=== PATIENT | female | born 1975 | race Caucasian/White ===

== ENCOUNTER 2022-10-17 10:43 | Emergency (ER) | payer BC ==
[~2022-10-17] VITALS: Ht 167.6 cm; Wt 68.2 kg
[2022-10-17] MEDS ORDERED: diazepam 5mg tablet PO ONE (11:05)
[2022-10-17] MEDS ORDERED: OLANZapine **IM** 10 mg inj. IM ONE (11:20)
--- NOTE | 2022-10-17 11:28 | NUR ---
Pt refusing her PO valium and attempted to leave. Provider aware and to order IM medication
[2022-10-17 11:29] LABS: BASOPHILS # (AUTO) 0.1 X10'3 (0-0.2); BASOPHILS % (AUTO) 0.5 % (0-1); EOSINOPHILS % (AUTO) 0.1 % (0-6); HEMOGLOBIN 15.2 g/dl (12.0-16.0); LYMPHOCYTES # (AUTO) 1.3 X10'3 (1.1-4.8); LYMPHOCYTES % (AUTO) 9.6 % (21-51); MEAN CORPUSCULAR HEMOGLOBIN 29.3 PG (27.0-31.0); MEAN CORPUSCULAR VOLUME 88.8 FL (78-98); MEAN PLATELET VOLUME 7.9 FL (7.4-10.4); MONOCYTES # (AUTO) 0.6 X10'3 (0-0.9); MONOCYTES % (AUTO) 4.4 % (2-12); NEUTROPHILS # (AUTO) 11.7 X10'3 (1.8-7.7); NEUTROPHILS % (AUTO) 85.4 % (42-75); PLATELET COUNT 334 X10'3 (140-440); RED BLOOD COUNT 5.18 X10'6 (4.20-5.60); RED CELL DISTRIBUTION WIDTH 13.1 % (11.5-14.5); WHITE BLOOD COUNT 13.7 X10'3 (4.5-11.0)
[2022-10-17 11:38] LABS: ALANINE AMINOTRANSFERASE 20 U/L (12-78); ALBUMIN 4.3 G/DL (3.4-5.0); ALBUMIN/GLOBULIN RATIO 1.3 (1.1-1.5); ALKALINE PHOSPHATASE 74 IU/L (46-116); ANION GAP 10 (8-16); ASPARTATE AMINO TRANSFERASE 20 U/L (10-37); BILIRUBIN,TOTAL 0.5 MG/DL (0.1-1.0); CALCIUM 9.1 MG/DL (8.5-10.1); CHLORIDE 102 MMOL/L (99-107); CREATININE 0.69 MG/DL (0.40-0.90); GLUCOSE 120 MG/DL (70-104); POTASSIUM 3.3 MMOL/L (3.5-5.1); SODIUM 139 MMOL/L (135-145); TOTAL CARBON DIOXIDE 27.4 MMOL/L (24-32); TOTAL PROTEIN 7.5 G/DL (6.4-8.2); eGFR 90 ML/MIN
[2022-10-17 11:47] LABS: ETHANOL < 0.010 GM/DL (0.0-0.010)
[2022-10-17 11:55] LABS: BLOOD UREA NITROGEN 10 MG/DL (7-18); BUN/CREATININE RATIO 14.5 (6.6-38.0)
--- NOTE | 2022-10-17 12:32 | NUR ---
Patient brought over from Main ED at 1220. Patient sat on the floor when she got out of the wheelchair. Patient appears out of it. RN looked at eMAR and noted patient rec'd 10 mg I.M. of Zyprexa. Per TRAM Machado, patient was getting very anxious/manic and was attempting to leave. Patient did not appear to have capacity and YOUNG Clements ordered the I.M. injection. Continue to monitor.
[2022-10-17] MEDS ORDERED: NAPR220T67 PO (14:00)
[2022-10-17] MEDS ORDERED: ACET-890 PO (14:01)
--- NOTE | 2022-10-17 14:09 | NUR ---
[facility]y called for pt insurance and job status. Pt mother at bedside to help with questions.
[2022-10-17 14:11] LABS: URINE HCG NEGATIVE (NEG)
[2022-10-17 14:21] LABS: URINE AMPHETAMINE SCREEN NEGATIVE (Neg); URINE BARBITUATE SCREEN NEGATIVE (Neg); URINE BENZODIAZEPINES SCREEN NEGATIVE (Neg); URINE CANNABINOID SCREEN NEGATIVE (Neg); URINE COCAINE SCREEN NEGATIVE (Neg); URINE METHADONE SCREEN NEGATIVE (Neg); URINE OPIATE SCREEN NEGATIVE (Neg); URINE PHENCYCLIDINE SCREEN NEGATIVE (Neg)
[2022-10-17 14:42] LABS: CLARITY,URINE SLIGHTLY CLOUDY (Clear); COLOR,URINE YELLOW (Yellow); GLUCOSE, URINE NEGATIVE (Neg); KETONES,URINE 15 mg/dl (Neg); LEUKOCYTE ESTERASE ,URINE NEGATIVE (Neg); NITRITES, URINE NEGATIVE (Neg); OCCULT BLOOD,URINE NEGATIVE (Neg); PROTEIN,URINE NEGATIVE (Neg); UROBILINOGEN,URINE 0.2 E.U/dL (0.2-1.0)
[2022-10-17 14:43] LABS: UA COLLECTION TYPE STRAIGHT CATH
[2022-10-17 14:58] LABS: MUCUS STRANDS MODERATE /LPF (Neg); SQUAMOUS EPITHELIAL CELL,UR MANY /LPF (FEW)
[2022-10-17 15:02] LABS: BACTERIA,URINE FEW /HPF (Neg); RBC,URINE 0-2 /HPF (0-2); TRANSITIONAL EPI CELLS,URINE FEW /HPF; WBC,URINE 0-4 /HPF (0-4)
--- NOTE | 2022-10-17 15:17 | NUR ---
FAXED PACKET TO [facility].
--- NOTE | 2022-10-17 15:43 | NUR ---
Patient sleeping supine. No distress observed. Continue to monitor.
--- NOTE | 2022-10-17 16:35 | NUR ---
RN sitting with mother of patient and explaining the process and getting information on the patient. Mother denies patient has a psychiatric diagnosis. RN explains to mother that her other daughter gave RN HX of diagnosis of Bipolar d/o diagnosed 6-8 years ago. RN asked mother about schizophrenia because there was a mention in the doctor's note about schizophrenia. Mother states she doesn't know where this came from. Patient is sound asleep due to not sleeping for 2-3 days. Patient will probably be asleep until tomorrow due to pt's lack of sleep and getting the Zyprexa injection. History will need to be taken from the patient. RN spoke with [facility] who stated Nadya or Jan would be here tomorrow for the evaluation. Mother is aware that the eval will happen tomorrow. Mother had no idea that bringing her daughter here would result in a hold. [facility] brought the patient here and they told the patient and mom that she would see a psychiatrist here for medication. RN explained that the only way in [facility] for a psychiatrist to see a new patient is the patient would have to be In-patient. The patient would have to be on a 5150 hold. RN gave the mother a brochure to [facility] which is a voluntary unit.
[2022-10-18 05:53] VITALS: BP 114/67
--- NOTE | 2022-10-18 06:51 | NUR ---
Received Pt in bed sleeping w/o distress at this time.
--- NOTE | 2022-10-18 08:00 | NUR ---
Pt's mother is at bedside at this time.
[2022-10-18] MEDS ORDERED: acetaminophen 325mg tablet PO ONE (09:25)
[2022-10-18] MEDS ORDERED: calcium carbonate 500mg chew tablet PO SCH (09:35)
== END 2022-10-18 11:23 | disposition home or self-care (01) ==
LOC: ER 10:43
DX: R45.851 Suicidal ideations (principal); Z20.822 Contact with and (suspected) exposure to COVID-19; F20.9 Schizophrenia, unspecified; F32.A Depression, unspecified; Z88.1 Allergy status to other antibiotic agents
CPT/HCPCS: 36415; 80053; 80305; 80320; 81001; 81025; 84443; 85025; 87811; 96372; 99285; J3490; A4353

== ENCOUNTER 2023-04-26 16:40 | Inpatient (IN) | payer BC ==
[~2023-04-26] VITALS: Ht 167.6 cm; Wt 79.7 kg
[~2023-04-26 16:40] MED LIST: ACET-890 PO; NAPR220T67 PO
[2023-04-26] MEDS ORDERED: acetaminophen 325mg tablet PO PRN (21:40)
[2023-04-26] MEDS ORDERED: loperamide 2mg capsule PO PRN (21:40)
[2023-04-26 21:47] VITALS: BP 112/70; PULSE 67; RESP 16; TEMP 97.2; O2SAT 94
[2023-04-26] MEDS ORDERED: OMEP40CA21 PO (22:38)
[2023-04-26] MEDS ORDERED: SERT25TA PO (22:38)
[2023-04-26] MEDS ORDERED: HYDR-3686 PO (22:38)
[2023-04-26] MEDS ORDERED: ESCI20TA17 PO (22:38)
[2023-04-26] MEDS ORDERED: RISP90SU SQ (22:38)
[2023-04-26] MEDS ORDERED: RISP1TAB98 PO (22:38)
[2023-04-26] MEDS ORDERED: traZODone 50mg tablet PO ONE (22:44)
[2023-04-26] MEDS ORDERED: NO HOME MEDS (22:52)
[2023-04-26 23:12] VITALS: RESP 16; O2SAT 94
--- NOTE | 2023-04-27 03:26 | NUR ---
Admit Note: Reva Patient is a direct admit from [facility]. Pt is on 5150 for DTS/GD. Pt cut her left wrist because she was having CAH to harm herself. Pt hadnt been eating or sleeping well. No sutures needed for laceration/abrasion. Wound was measured and picture taken then redressed with telfa and gauze. Pt has a stressful job working for the [employer] in the [employer] service remotely. Pts mother took her in to be evaluated. Pt has a history of self harm and does not want to . Denies SI on admission. Pt was cooperative with skin check. Pt stated she suffers from insomnia. Trazodone 100mg given.
[2023-04-27 07:00] VITALS: RESP 16; O2SAT 98
[2023-04-27 08:00] VITALS: BP 110/53; PULSE 70; RESP 16; TEMP 97.1; O2SAT 98
[2023-04-27] MEDS ORDERED: sertraline 50mg tablet PO ONE (15:30)
[2023-04-27] MEDS ORDERED: LORazepam 0.5 MG tablet PO PRN (15:35)
--- NOTE | 2023-04-27 17:23 | NUR ---
Nursing Progress Note: Problem : Patient is a direct admit from [facility]. Pt is on 5150 for DTS/GD. Pt cut her left wrist because she was having CAH to harm herself. Pt hadnt been eating or sleeping well. No sutures needed for laceration/abrasion. Wound was measured and picture taken then redressed with telfa and gauze. 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 Pts mother took her in to be evaluated. Pt has a history of self harm and does not want to . Denies SI on admission. Interventions : Introduced self and established rapport, maintained a safe and supportive environment, ensured contract for safety, provided clear and simple instructions, provided active listening and positive encouragement, encouraged pt. to perform ADLs, and maintained Q 15min safety checks. Response : Received pt. sleeping in bed at the beginning of the shift, she awoke and paced the hallway for a short time, before retreating back to bed. Pt. refused her ordered admission labs becoming slightly agitated. This song writer introduced herself and invited pt. to come to breakfast when it arrived. Pt. stared intently at this song writer for a long time before finally responding, "I'll come down to eat." She finally made it to breakfast after a long delay, where she sat blankly staring at her food. Pt. was able to eat a small amount with encouragement. She appears to require encouragement in order to perform her ADLs. After breakfast, pt. was observed to be wandering aimlessly in the hallway and appeared almost lost. This song writer approached her and provided active listening and positive encouragement. 1:1 was completed, and pt. responded minimally to direct questions with a very delayed response. When questioned regarding S/I pt. stated, "I don't know." She is able to contract for safety while on the unit. Pt. then went on to state remorsefully, "I just feel like I hurt my family." She denies any A/V/BURNHAM and no delusional statements were made. Pt. remained isolated from others throughout much of the shift, napping at intervals. She continues to require encouragement to eat, and ate lunch in her room. Plan : Pt. requires interruption of current crisis, medication adjustments, and a safe and supportive environment.
[2023-04-27 19:40] VITALS: RESP 14; O2SAT 97
[2023-04-27] MEDS: risperiDONE 0.5mg tablet PO SCH (20:05)
[2023-04-27] MEDS: traZODone 50mg tablet PO SCH ×2 (20:06→23:11)
[2023-04-27 20:48] VITALS: BP 134/82; PULSE 80; RESP 14; TEMP 98.9; O2SAT 97
[2023-04-27] MEDS ORDERED: diphenhydrAMINE 50 mg/ml inj ONE (23:24)
[2023-04-27] MEDS: OLANZapine **IM** 10 mg inj. IM ONE ×2 (23:24→23:43)
[2023-04-27] MEDS ORDERED: LORazepam 2 mg/ml vial ONE (23:25)
--- NOTE | 2023-04-27 23:40 | NUR ---
SECLUSION/MECHANICAL RESTRAINTS Early this evening Pt was was up walking and started running toward the exit door, Pt was redirected and walked back to room. PRN Ativan given. This radio script writer had was in with Pt in room. About approximately a half an hour later Pt starting walking and ran towards the exit door. Pt reported feeling guilty and wants to leave. This radio script writer and and staff redirected and Pt still attempted to leave. This radio script writer and staff walked back towards her room and stop and this radio script writer and Charge Nurse suggested Pt take a PRN trazodone. This nurse offer PRN trazodone and Pt slapped it out of nurses hand. Then Pt pushed another staff out of the way to leave. Security was contacted, charge nurse requested Pt to sit down by near by chair and Pt complied. Security arrived, Pt jumped out of the chair and attempted to run, security escorted Pt into seclusion room. Pt sat on the bed and she took reported trazodone offered and laid down. Security and staff left the room and a few minutes went by and Pt crawled off bed and began hitting her head on the side of her bed. Pt stood up and began running head first into the wall. Provider was contacted. Order receive for emergency medication, seclusion and mechanical restraints. Mechanical applied. Emergency Meds administered and Pt laid down.
[2023-04-28] MEDS: OLANZapine **IM** 10 mg inj. IM ONE ×2 (00:40→01:05)
--- NOTE | 2023-04-28 04:10 | NUR ---
Nursing Progress Note:Reva Problem : Patient is a direct admit from [facility]. Pt is on 5150 for DTS/GD. Pt cut her left wrist because she was having CAH to harm herself. Pt hadnt been eating or sleeping well. No sutures needed for laceration/abrasion. Wound was measured and picture taken then redressed with telfa and gauze. 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 Pts mother took her in to be evaluated. Pt has a history of self harm and does not want to . Denies SI on admission. Interventions : Introduced self and established rapport, maintained a safe and supportive environment, ensured contract for safety, provided clear and simple instructions, provided active listening and positive encouragement, encouraged pt. to perform ADLs, and maintained Q 15min safety checks. Response : Received report from AM shift. Pt in room with eyes closed. Pt is calm and quiet and soft spoken. Pt reported not eating much and denies constipation. Pt isolates self in room this evening. Pt showed delayed response and appears withdrawn. Pt appears to have a flat affect and responding with no emotion. Pt reported feeling anxious and dont know why. PRN Ativan administered. Pt denies SI, HI, VH/AH at this time. Pt cooperative and took meds with no issues noted before episode. Early this evening Pt was up walking and started running toward the exit door. Pt was redirected and walked back to her room PRN Ativan administered. Pt elaborated and was feeling guilty of how the way things are going. Pt reported being in here is not right, and should be fixed differently. Pt reported 2 years ago her 18 year old dog from her negligence and her boyfriend committed suicide because of her. She feels guilty and is irresponsible for not doing her job. Pt reported being irresponsible for not reported to her boss and things she supposed to be doing she is not doing. Pt elaborate about her boyfriend and how he is such a good man, who did everything right. Pt seem distant and emotionless. Pt reported she has a hard time crying. About approximately a half an hour later Pt starting walking and ran towards the exit door. Pt reported feeling guilty and wants to leave. This commercial loan underwriter and staff redirected her and Pt started escalating and could not redirect her. Plan : Pt. requires interruption of current crisis, medication adjustments, and a safe and supportive environment.
[2023-04-28 07:00] VITALS: RESP 16
[2023-04-28 08:00] VITALS: RESP 16
[2023-04-28] MEDS: risperiDONE 0.5mg tablet PO SCH (09:30)
[2023-04-28] MEDS ORDERED: OLANZapine 2.5MG tablet PO PRN (17:00)
[2023-04-28] MEDS ORDERED: OLANZAPINE 5 MG TABLET PO PRN (17:14)
--- NOTE | 2023-04-28 17:52 | NUR ---
Nursing Progress Note: Reva Problem : Patient is a direct admit from [facility]. Pt is on 5150 for DTS/GD. Pt cut her left wrist because she was having CAH to harm herself. Pt hadnt been eating or sleeping well. No sutures needed for laceration/abrasion. Wound was measured and picture taken then redressed with telfa and gauze. 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 Pts mother took her in to be evaluated. Pt has a history of self harm and does not want to . Denies SI on admission. Interventions : Introduced self and established rapport, maintained a safe and supportive environment, ensured contract for safety, provided clear and simple instructions, provided active listening and positive encouragement, encouraged pt. to perform ADLs, and maintained Q 15min safety checks. Response : Received Pt in seclusion room sleeping w/o distress and door unlocked. Pt was resistive to AM blood draw and was guided back to her room. Pt attempted to grab this RN while stating she would leave here sooner if she attacked people. The opposite was explained to her. Pt attempted to leave through alarmed door and was guided away. Pt remained groggy from IM PRN meds given last night and returned to bed and slept. Pt woke for breakfast and ate well. She took her AM med (Risperdal 0.5) Pt napped again and woke to visit with her mother. Pt used bathroom and needed a change of underwear and scrubs. Pt spoke with Nelsy VIDAL and discussed changing oral med to Zyprexa. Pt napped most of the afternoon. Plan : Pt. requires interruption of current crisis, medication adjustments, and a safe and supportive environment.
[2023-04-28 20:00] VITALS: BP 108/67; PULSE 74; RESP 16; TEMP 97; O2SAT 95; O2SAT 98
[2023-04-28] MEDS: thiamine 100mg tablet PO SCH (20:03)
[2023-04-28] MEDS: LORazepam 0.5 MG tablet PO PRN (20:03)
[2023-04-28] MEDS: olanzapine 10mg tablet PO SCH (20:03)
--- NOTE | 2023-04-29 03:22 | NUR ---
Nursing Progress Note: Problem: Patient is a direct admit from [facility]. Pt is on 5150 for DTS/GD. Pt cut her left wrist because she was having CAH to harm herself. Pt hadnt been eating or sleeping well. No sutures needed for laceration/abrasion. Wound was measured and picture taken then redressed with telfa and gauze. 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 Pts mother took her in to be evaluated. Pt has a history of self-harm and does not want to . Denies SI on admission. Interventions: Introduced self and established rapport, maintained a safe and supportive environment, ensured contract for safety, provided clear and simple instructions, provided active listening and positive encouragement, encouraged pt. to perform ADLs, and maintained Q 15min safety checks. Response: upon shift patient was seen in bed with eyes closed. During 1:1, patient was pleasant and kind. Patient took medication with no complaints. Patient stated she sleeps well here but sleeps better at home. Patient was later seen in day room socializing with peers. Patient ate all meals and participated in HS snack. Patient denies any hallucinations, voices, and bad thoughts. Patient remained asleep all night no complications to note. Plan: Pt. requires interruption of current crisis, medication adjustments, and a safe and supportive environment.
[2023-04-29] MEDS: LORazepam 0.5 MG tablet PO PRN ×2 (05:47→20:16)
[2023-04-29 07:18] VITALS: BP 125/73; PULSE 76; RESP 16; TEMP 97.9; O2SAT 97
[2023-04-29 08:16] LABS: HEMOGLOBIN A1C 5.2 % (4.5-6.2)
[2023-04-29 08:36] LABS: ALANINE AMINOTRANSFERASE 37 U/L (12-78); ALBUMIN/GLOBULIN RATIO 1.1 (1.1-1.5); ALKALINE PHOSPHATASE 64 IU/L (46-116); ANION GAP 8 (8-16); ASPARTATE AMINO TRANSFERASE 25 U/L (10-37); BILIRUBIN,TOTAL 0.4 MG/DL (0.1-1.0); BLOOD UREA NITROGEN 15 MG/DL (7-18); BUN/CREATININE RATIO 21.4 (10.0-20.0); CALCIUM 8.6 MG/DL (8.5-10.1); CHLORIDE 105 MMOL/L (99-107); CHOL/HDL RATIO 3.2 (0.00-4.99); CHOLESTEROL 139 MG/DL (0-200); GLUCOSE 96 MG/DL (70-104); HDL CHOLESTEROL 44 MG/DL (35-60); LDL CHOLESTEROL 76 MG/DL (50-100); POTASSIUM 3.2 MMOL/L (3.5-5.1); SODIUM 142 MMOL/L (135-145); TOTAL CARBON DIOXIDE 29.5 MMOL/L (24-32); TOTAL PROTEIN 5.8 G/DL (6.4-8.2); TRIGLYCERIDES 67 MG/DL (20-135); eCRCL 90 ML/MIN; eGFR 89 ML/MIN
[2023-04-29 09:17] LABS: BASOPHILS # (AUTO) 0.1 X10'3 (0-0.2); BASOPHILS % (AUTO) 0.5 % (0-1); EOSINOPHILS # (AUTO) 0.2 X10'3 (0-0.9); HEMATOCRIT 39.1 % (35.0-45.0); HEMOGLOBIN 13.2 g/dl (12.0-16.0); LYMPHOCYTES # (AUTO) 2.3 X10'3 (1.1-4.8); LYMPHOCYTES % (AUTO) 22.1 % (21-51); MEAN CORPUSCULAR HEMOGLOBIN 29.2 PG (27.0-31.0); MEAN CORPUSCULAR HGB CONC 33.7 g/dL (33.0-36.5); MEAN CORPUSCULAR VOLUME 86.8 FL (78-98); MEAN PLATELET VOLUME 8.5 FL (7.4-10.4); MONOCYTES # (AUTO) 0.7 X10'3 (0-0.9); MONOCYTES % (AUTO) 6.8 % (2-12); NEUTROPHILS % (AUTO) 68.6 % (42-75); PLATELET COUNT 268 X10'3 (140-440); RED BLOOD COUNT 4.51 X10'6 (4.20-5.60); RED CELL DISTRIBUTION WIDTH 13.3 % (11.5-14.5); WHITE BLOOD COUNT 10.3 X10'3 (4.5-11.0)
[2023-04-29] MEDS: thiamine 100mg tablet PO SCH ×2 (11:27→20:16)
[2023-04-29] MEDS: folic acid 1mg tablet PO SCH (11:27)
[2023-04-29] MEDS: multivitamins, therapeutics tablet PO SCH (11:27)
[2023-04-29] MEDS: cyanocobalamin 500mcg tablet PO SCH (11:27)
[2023-04-29] MEDS ORDERED: potassium chloride 10mEq ER tablet PO ONE (13:30)
--- NOTE | 2023-04-29 17:06 | NUR ---
Nursing Progress Note: Reva Problem : Patient is a direct admit from [facility]. Pt is on 5150 for DTS/GD. Pt cut her left wrist because she was having CAH to harm herself. Pt hadnt been eating or sleeping well. No sutures needed for laceration/abrasion. Wound was measured and picture taken then redressed with telfa and gauze. Pt has a stressful job working for the [employer] in the [employer] service remotely. Pts mother took her in to be evaluated. Pt has a history of self harm and does not want to . Denies SI on admission. Interventions : Introduced self and established rapport, maintained a safe and supportive environment, ensured contract for safety, provided clear and simple instructions, provided active listening and positive encouragement, encouraged pt. to perform ADLs, and maintained Q 15min safety checks. Response : Received patient sleeping at shift change. Pt roused to name at med [employer], however wouldn't wake up. Pt declined morning medication feeling "nauseous," however declined intervention. Pt woke around 1000 for visitation pt presented sedated and groggy. Pt was tearful as she sat in group room crying. Pt told check writer salesperson when she checked on her "I am so blessed to have such kind work peers." Pt was referring to them being supportive of her hospital stay. Pt has a delayed response when asked questions. Pt shook her head to A/VH, SI and HI. Pt spent a majority of her day lying in bed sleeping. Pt compliant with K+ replacement. Will continue to monitor. Plan : Pt. requires interruption of current crisis, medication adjustments, and a safe and supportive environment. Pt currently is a high risk discharge.
[2023-04-29 20:00] VITALS: BP 97/70; PULSE 72; RESP 16; TEMP 97.5; O2SAT 97
[2023-04-29] MEDS: traZODone 50mg tablet PO SCH (20:17)
[2023-04-29] MEDS: olanzapine 10mg tablet PO SCH (20:17)
--- NOTE | 2023-04-30 03:28 | NUR ---
Nursing Progress Note: Reva Problem: Patient is a direct admit from [facility]. Pt is on 5150 for DTS/GD. Pt cut her left wrist because she was having CAH to harm herself. Pt hadnt been eating or sleeping well. No sutures needed for laceration/abrasion. Wound was measured and picture taken then redressed with telfa and gauze. Pt has a stressful job working for the [employer] in the [employer] service remotely. Pts mother took her in to be evaluated. Pt has a history of self-harm and does not want to . Denies SI on admission. Interventions: Introduced self and established rapport, maintained a safe and supportive environment, ensured contract for safety, provided clear and simple instructions, provided active listening and positive encouragement, encouraged pt. to perform ADLs, and maintained Q 15min safety checks. Response: upon shift patient was seen in room getting ready to attend dinner with roommate. After dinner patient remained in TV RM to solve a puzzle. Patient seemed as pleasant as previous day, denying any and all psychosis symptoms. Patient made a few calls this evening and stayed on phone for a while talking with family member, it seemed to be a good conversation that made her smile. Patient was cooperative with medication regimen with no complaints to note. Patient participated in HS snack, and shortly after returned to room and went to bed. Patient currently in bed with eyes shut and lying on right side. Plan: Pt. requires interruption of current crisis, medication adjustments, and a safe and supportive environment. Pt currently is a high risk discharge.
[2023-04-30 07:55] VITALS: BP 121/74; PULSE 74; RESP 14; TEMP 98.4; O2SAT 96
[2023-04-30] MEDS: cyanocobalamin 500mcg tablet PO SCH (08:39)
[2023-04-30] MEDS: multivitamins, therapeutics tablet PO SCH (08:39)
[2023-04-30] MEDS: thiamine 100mg tablet PO SCH ×2 (08:39→19:27)
[2023-04-30] MEDS: folic acid 1mg tablet PO SCH (08:39)
[2023-04-30] MEDS: potassium chloride 10mEq ER tablet PO SCH (08:45)
--- NOTE | 2023-04-30 17:38 | NUR ---
NURSING PROGRESS NOTE Problem : Pt is on 5150 for DTS/GD from [facility]. Pt cut her left wrist because she was having CAH to harm herself. Pt hadnt been eating or sleeping well. No sutures needed for laceration/abrasion. Wound was measured and picture taken then redressed with telfa and gauze. Pt has a stressful job working for the [email or web address] in the [employer] service remotely. Pts mother took her in to be evaluated. Pt has a history of self harm and does not want to . Denies SI on admission. Interventions : Maintained a safe and supportive environment, ensured contract for safety, provided clear and simple instructions, provided active listening and positive encouragement, encouraged pt. to perform ADLs, and maintained Q 15min safety checks. Response : Received patient sleeping at shift change. Pt slept late and declined breakfast. Pt continues to have intermittent tearful episodes. Pt's 5250 was upheld causing pt to become upset. Pt later was crying in her room, when asked what was wrong pt was tangential her thoughts. Pt talked about her grandmother and how the world was evil and why and how can people treat each other in bad ways. Pt worked herself up crying and at times it was difficult to understand what she was saying. Pt eventually calmed as director underwriter sales sat and listened. Pt was out in group room for a short time putting together a puzzle. Pt is worried about her job. Pt denies SI/HI. A/VH were not discussed, pt didn't elaborate. Plan : Pt. requires interruption of current crisis, medication adjustments, and a safe and supportive environment. Pt currently is a high risk discharge.
[2023-04-30 18:45] VITALS: RESP 18; O2SAT 100
[2023-04-30] MEDS ORDERED: potassium Cl 20 mEq SR tablet PO STA (19:20)
[2023-04-30] MEDS: LORazepam 0.5 MG tablet PO PRN (19:26)
[2023-04-30] MEDS: magnesium hydroxide 30ml (MOM) UD suspension PO PRN (19:27)
[2023-04-30] MEDS: acetaminophen 325mg tablet PO PRN (19:27)
[2023-04-30 20:00] VITALS: BP 131/76; PULSE 83; RESP 18; TEMP 98.2; O2SAT 100
[2023-04-30] MEDS: traZODone 50mg tablet PO SCH (20:02)
[2023-04-30] MEDS: olanzapine 10mg tablet PO SCH (20:02)
--- NOTE | 2023-05-01 04:19 | NUR ---
NURSING PROGRESS NOTE: Problem : Pt is on 5150 for DTS/GD from [facility]. Pt cut her left wrist because she was having CAH to harm herself. Pt hadnt been eating or sleeping well. No sutures needed for laceration/abrasion. Wound was measured and picture taken then redressed with telfa and gauze. Pt has a stressful job working for the [employer] in the [employer] service remotely. Pts mother took her in to be evaluated. Pt has a history of self harm and does not want to . Denies SI on admission. Interventions : Maintained a safe and supportive environment, ensured contract for safety, provided clear and simple instructions, provided active listening and positive encouragement, encouraged pt. to perform ADLs, and maintained Q 15min safety checks. Response : Upon arrival to shift noted patient sitting quietly in dining room watching TV. As nurse approached patient noted her to be pleasant and give good eye contact during introduction. Calm and cooperative. Reports BURNHAM and constipation. Thoughts/speech linear. Reports feeling better without any SI, HI, AH or VH. Compliant with HS meds. PRN Tylenol, Ativan, and M.O.M given. Noted. 3.2 K+ level from 8/13 AM. Received orders for 40 mEq Potassium x 1 this shift. Repeat K+ lab pending this am. Dr. Abebe to re-evaluate if scheduled 10 mEq Potassium will be needed. Dayshift RN to update him on lab value. Noted superficial scab to left wrist from self-harm event. Patient denies pain. Will continue to monitor. Plan : Pt. requires interruption of current crisis, medication adjustments, and a safe and supportive environment. Pt currently is a high risk discharge.
[2023-05-01 07:09] VITALS: BP 116/68; PULSE 77; RESP 15; TEMP 97.6; O2SAT 95
[2023-05-01] MEDS: thiamine 100mg tablet PO SCH ×2 (08:29→20:13)
[2023-05-01] MEDS: cyanocobalamin 500mcg tablet PO SCH (08:29)
[2023-05-01] MEDS: folic acid 1mg tablet PO SCH (08:34)
[2023-05-01] MEDS: multivitamins, therapeutics tablet PO SCH (08:34)
[2023-05-01] MEDS: magnesium hydroxide 30ml (MOM) UD suspension PO PRN (09:04)
--- NOTE | 2023-05-01 10:56 | NUR ---
Initial: Pt admit DX schizophrenia, depression, SI, and etoh dependence per EMR. PO ~29% avg regular diet w/ refusals not meeting estimated needs. Noted pt frequently sleeps through breakfast w/ hx decreasing intake [employer]IATE though reports no wt loss [employer] ASSOCIATE per EMR. Receiving routine thiamine, folic acid, MVI, and B12 for etoh per MD. RD d/w RN recommends Ensure Enlive BIDLD if MD agreeable to assist meeting needs. LBM 04/28 received PRN MoM today per EMR. Will monitor for further nutrition intervention needs this admit. Rec: 1. continue regular diet; encourage PO 2. Ensure Enlive BIDLD if MD agreeable to assist meeting needs 3. routine thiamine, folic acid, B12, and MVI for etoh hx per MD 4. bowel care per rx 5. weekly wt Addendum: 05/01/23 at [address] Amended: Links added.
[2023-05-01] MEDS: potassium chloride 10mEq ER tablet PO SCH (12:52)
[2023-05-01] MEDS: sertraline 50mg tablet PO SCH (14:36)
[2023-05-01] MEDS ORDERED: bisacodyl 10mg suppository rectal RC ONE (15:35)
--- NOTE | 2023-05-01 17:21 | NUR ---
NURSING PROGRESS NOTE Problem : Pt is on 5150 for DTS/GD from [facility]. Pt cut her left wrist because she was having CAH to harm herself. Pt hadnt been eating or sleeping well. No sutures needed for laceration/abrasion. Wound was measured and picture taken then redressed with telfa and gauze. 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 Pts mother took her in to be evaluated. Pt has a history of self harm and does not want to . Denies SI on admission. Interventions : Maintained a safe and supportive environment, ensured contract for safety, provided clear and simple instructions, provided active listening and positive encouragement, encouraged pt. to perform ADLs, and maintained Q 15min safety checks. Response : Received patient sleeping at shift change. Pt sleeps most of the morning. Pt declined breakfast and ate about 20% of lunch. Pt has been placed on Ensure Enlive BID per and ok with . Pt denies A/VH, SI/HI. Pt presents depressed states "I feel just, well...overwhelmed." Pt presents with a constricted affect. Pt is easily distracted when asking about mood. Pt becomes tangential about "their is so much bad in the world." "It's easy to get caught up into it." Pt cries easily, but is able to be distracted and comes out of it. Pt c/o constipation, given MOM without effect. Received order for suppository from Dr. Abebe and Lactulose from Dr. Naidu. pt was started on Zoloft. Pt is coming our of her room more, but the retreats to read her book. Plan : Pt. requires interruption of current crisis, medication adjustments, and a safe and supportive environment. Pt currently is a high risk discharge.
[2023-05-01] MEDS: lactose-reduced food (Ensure Enlive) - 237ml bottle PO SCH ×2 (18:00→20:00)
[2023-05-01 19:00] VITALS: RESP 18; O2SAT 99
[2023-05-01 19:42] VITALS: BP 140/82; PULSE 74; RESP 18; TEMP 98.6; O2SAT 99
[2023-05-01] MEDS ORDERED: lactose-reduced food (Ensure Enlive) - 237ml bottle PO SCH (20:00)
[2023-05-01] MEDS: lactulose 20gm/30ml cup PO SCH ×2 (20:00→21:00)
[2023-05-01] MEDS: olanzapine 10mg tablet PO SCH (20:13)
[2023-05-01] MEDS: traZODone 50mg tablet PO SCH (20:13)
--- NOTE | 2023-05-01 21:16 | NUR ---
Ensure shake unavailable on dinner tray. Dietary forwarded secure message to send up ensure as per MD order. Fax submission completed.
--- NOTE | 2023-05-02 04:53 | NUR ---
NURSING PROGRESS NOTE: Reva Problem : Pt is on 5150 for DTS/GD from [facility]. Pt cut her left wrist because she was having CAH to harm herself. Pt hadnt been eating or sleeping well. No sutures needed for laceration/abrasion. Wound was measured and picture taken then redressed with telfa and gauze. Pt has a stressful job working for the [employer] in the [employer] service remotely. Pts mother took her in to be evaluated. Pt has a history of self harm and does not want to . Denies SI on admission. Interventions : Maintained a safe and supportive environment, ensured contract for safety, provided clear and simple instructions, provided active listening and positive encouragement, encouraged pt. to perform ADLs, and maintained Q 15min safety checks. Response : Pt received lying in bed. Pt is reading book. Pt mainly self-isolating during shift. Pt observed attending snack and spending time in day room watching TV. Pt agreeable to assessment. Pt appearance is clean and downcast, oriented x 4, clear but soft speech, Thought process- circumstantial, thought content depressed and anxious, No observable AH/VH, Average to poor insight, Poor judgement, Depressed and anxious mood, and blunted affect. Pt guarded with her answers. Pt verbalized her current stay is related to danger to self. She reports history of suicidal ideation but denies any S/I at this time. Pt reports having much worries about the wellbeing of her family and financial concerns. Pt overly concerned with taking her medications. Healthcare Financial Analyst reinforced medications side effects and same medications she has been taking for the previous few nights. She verbalized understanding. Med list reviewed with patient and printed out a new list for her. She was appreciative. Pt reports no sleep disturbances at this time. Pt has historically some trouble sleeping at times. She reports average appetite. Pt reports having a medium bowel movement today and refuses lactulose tx. Pt reports no adverse side effects to current medications. Pt reports new onset of burning upon urination every other void. Pt encouraged to drink more fluids. Healthcare Financial Analyst and staff will continue to monitor. Pt afebrile. Pt asking questions about financial prices of current prescriptions. Healthcare Financial Analyst encouraged pt to discuss with provider which medications he potentially may be discharging her with so pharmacy may be able to discuss costs. She verbalized understanding. Plan : Pt. requires interruption of current crisis, medication adjustments, and a safe and supportive environment. Pt currently is a high risk discharge.
--- NOTE | 2023-05-02 05:13 | NUR ---
COATING AND EMBOSSING UNIT OPERATOR documentation: I have reviewed and agree with all interventions, assessments performed and documented by Rios BRINK.
[2023-05-02 07:00] VITALS: BP 124/79; PULSE 82; RESP 16; TEMP 98.3; O2SAT 95
[2023-05-02] MEDS: thiamine 100mg tablet PO SCH ×2 (07:49→21:06)
[2023-05-02] MEDS: cyanocobalamin 500mcg tablet PO SCH (07:49)
[2023-05-02] MEDS: multivitamins, therapeutics tablet PO SCH (07:49)
[2023-05-02] MEDS: folic acid 1mg tablet PO SCH (07:49)
[2023-05-02] MEDS: sertraline 50mg tablet PO SCH (07:49)
[2023-05-02] MEDS: lactulose 20gm/30ml cup PO SCH ×3 (08:00→21:00)
[2023-05-02] MEDS: lactose-reduced food (Ensure Enlive) - 237ml bottle PO SCH ×2 (08:05→20:00)
--- NOTE | 2023-05-02 18:06 | NUR ---
NURSING PROGRESS NOTE Problem : Pt is on 5150 for DTS/GD from [facility]. Pt cut her left wrist because she was having CAH to harm herself. Pt hadnt been eating or sleeping well. No sutures needed for laceration/abrasion. Wound was measured and picture taken then redressed with telfa and gauze. Pt has a stressful job working for the [employer] in the [employer] service remotely. Pts mother took her in to be evaluated. Pt has a history of self harm and does not want to . Denies SI on admission. Interventions : Maintained a safe and supportive environment, ensured contract for safety, provided clear and simple instructions, provided active listening and positive encouragement, encouraged pt. to perform ADLs, and maintained Q 15min safety checks. Response: Received patient sleeping in bed at change of shift. Patient awakens, but is still sleepy, and is not awake enough to answer questions. After breakfast patient went into her room and laid down on her left side. Patient is slow to answer questions, may be thought blocking. Patient states that she gets very anxious and the night that she cut her wrist she was having anxiety. Patient states that she does hear voices occasionally and they told her to harm herself. Most of the time they are friendly voices. Patient also seems to have psychomotor retardation, as she moves very slowly. Affect is flat. Patient reading her bible. Report from night time nanny was that patient was having UTI symptoms, patient states that she had some burning with urination, but that it is lessened at this point. Patient refused to give specimen to send to the lab. Patient just states that she wants to get her medications straightened out, and then be discharged back home. Patients mother came for a long visit today, and this brightened patients mood. Plan : Pt. requires interruption of current crisis, medication adjustments, and a safe and supportive environment. Pt currently is a high risk discharge.
[2023-05-02] MEDS: mag hydrox/Alum hydrox/simeth 30ml oral suspension PO PRN (18:10)
[2023-05-02 19:00] VITALS: RESP 20; O2SAT 93
[2023-05-02 20:00] VITALS: BP 101/67; PULSE 104; RESP 20; TEMP 96.4; O2SAT 93
[2023-05-02] MEDS: olanzapine 10mg tablet PO SCH (21:06)
[2023-05-02] MEDS: traZODone 50mg tablet PO SCH (21:06)
[2023-05-03] MEDS: traZODone 50mg tablet PO SCH ×2 (01:29→21:12)
--- NOTE | 2023-05-03 04:56 | NUR ---
NURSING PROGRESS NOTE: Reva Problem : Pt is on 5150 for DTS/GD from [facility]. Pt cut her left wrist because she was having CAH to harm herself. Pt hadnt been eating or sleeping well. No sutures needed for laceration/abrasion. Wound was measured and picture taken then redressed with telfa and gauze. 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 Pts mother took her in to be evaluated. Pt has a history of self harm and does not want to . Denies SI on admission. Interventions : Maintained a safe and supportive environment, ensured contract for safety, provided clear and simple instructions, provided active listening and positive encouragement, encouraged pt. to perform ADLs, and maintained Q 15min safety checks. Response : Pt observed in day room and pt room. Pt mostly self isolates and does not engage with peers. Pt refused lactulose at medication pass. Pt reported BM 05/01/23. Pt mostly quiet during interactions. Pt minimally engages with staff. Pt went to bed early. Pt awoke 0130 hours stating she wasnt able to sleep. Paper Machine Operator administered Trazodone repeat dose as ordered. Medication appears effective. Plan : Pt. requires interruption of current crisis, medication adjustments, and a safe and supportive environment. Pt currently is a high risk discharge.
[2023-05-03 07:00] VITALS: BP 129/81; PULSE 87; RESP 16; TEMP 97.4; O2SAT 95
[2023-05-03] MEDS: multivitamins, therapeutics tablet PO SCH (08:37)
[2023-05-03] MEDS: folic acid 1mg tablet PO SCH (08:37)
[2023-05-03] MEDS: sertraline 50mg tablet PO SCH (08:37)
[2023-05-03] MEDS: cyanocobalamin 500mcg tablet PO SCH (08:37)
[2023-05-03] MEDS: thiamine 100mg tablet PO SCH ×2 (08:38→20:00)
[2023-05-03] MEDS: lactose-reduced food (Ensure Enlive) - 237ml bottle PO SCH ×2 (08:38→20:00)
[2023-05-03] MEDS: lactulose 20gm/30ml cup PO SCH ×3 (08:38→21:12)
[2023-05-03] MEDS: LORazepam 0.5 MG tablet PO PRN ×2 (10:00→21:12)
--- NOTE | 2023-05-03 15:26 | NUR ---
CASE MANAGEMENT Met with Pt. and her mother today to discuss discharge plans. Pt is feeling very excited to leave the hospital, reporting that she is feeling much better. Pt will return to her home when she is medically cleared. She shared how she works from home which she finds very isolating and has been looking into renting office space somewhere so she can be around people more. She is very open to going back to therapy especially after this Perinatal Technician explained how brain-spotting could be helpful to her for working through her past traumas. Pt. reported that she still is plagued by the "voice" of her ex who killed himself over 15 years ago. [facility]. Will get her follow appointments set up and continue to follow as needed. Yoly Lee LCSW
--- NOTE | 2023-05-03 17:59 | NUR ---
NURSING PROGRESS NOTE Problem : Pt is on 5150 for DTS/GD from [facility]. Pt cut her left wrist because she was having CAH to harm herself. Pt hadnt been eating or sleeping well. No sutures needed for laceration/abrasion. Wound was measured and picture taken then redressed with telfa and gauze. Pt has a stressful job working for the [employer] in the [employer] service remotely. Pts mother took her in to be evaluated. Pt has a history of self-harm and does not want to . Denies SI on admission. Interventions : Maintained a safe and supportive environment, ensured contract for safety, provided clear and simple instructions, provided active listening and positive encouragement, encouraged pt. to perform ADLs, and maintained Q 15min safety checks. Response: Received patient in bed sleeping at change of shift. Went in to do a 1:1 at bedside, but patient was laying half on the bed and said she was sleeping. She did take her morning medications without incident. Patient was walking the hallway later on and requested an Ativan for her anxiety. Patient came up about a half an hour later and thanked RN for the Ativan. Patients mother came in to visit with patient. Patient says her mother is a wonderful woman. Patient is requesting to see the doctor in regards to discharge. Patient naps on and off throughout the day. Plan : Pt. requires interruption of current crisis, medication adjustments, and a safe and supportive environment. Pt currently is a high risk discharge.
[2023-05-03 19:00] VITALS: RESP 16; O2SAT 96
--- NOTE | 2023-05-03 19:23 | NUR ---
Nurse Progress Note Problem : Pt is on 5150 for DTS/GD from [facility]. Pt cut her left wrist because she was having CAH to harm herself. Pt hadnt been eating or sleeping well. No sutures needed for laceration/abrasion. Wound was measured and picture taken then redressed with telfa and gauze. Pt has a stressful job working for the [employer] in the [employer] service remotely. Pts mother took her in to be evaluated. Pt has a history of self-harm and does not want to . Denies SI on admission. Interventions : Maintained a safe and supportive environment, ensured contract for safety, provided clear and simple instructions, provided active listening and positive encouragement, encouraged pt. to perform ADLs, and maintained Q 15min safety checks. Response: The patient was in the community room following shift change. She sits by herself. 1:1 Interview in the community room. The patient is well oriented, she makes direct eye contact. She speaks in a normal rate, rhythm, and tone. Patient smiles during conversation. No BM today. She tells this sign writer hand she has had some anxiety and would like something to treat that if possible. Plan : Pt. requires interruption of current crisis, medication adjustments, and a safe and supportive environment.
[2023-05-03 20:00] VITALS: BP 126/75; PULSE 90; RESP 16; TEMP 97.3; O2SAT 96
[2023-05-03] MEDS: olanzapine 10mg tablet PO SCH (21:13)
[2023-05-04 07:33] VITALS: RESP 14; O2SAT 96
[2023-05-04] MEDS: folic acid 1mg tablet PO SCH (07:42)
[2023-05-04] MEDS: multivitamins, therapeutics tablet PO SCH (07:43)
[2023-05-04] MEDS: sertraline 50mg tablet PO SCH (07:43)
[2023-05-04] MEDS: thiamine 100mg tablet PO SCH ×2 (07:43→20:27)
[2023-05-04] MEDS: cyanocobalamin 500mcg tablet PO SCH (07:43)
[2023-05-04] MEDS: lactulose 20gm/30ml cup PO SCH ×3 (07:43→20:26)
[2023-05-04 08:00] VITALS: BP 121/72; PULSE 79; RESP 14; TEMP 98.5; O2SAT 96
[2023-05-04] MEDS: LIDOcaine 5% patch TP SCH (08:00)
[2023-05-04] MEDS: lactose-reduced food (Ensure Enlive) - 237ml bottle PO SCH ×2 (08:00→20:00)
[2023-05-04] MEDS: acetaminophen 325mg tablet PO PRN (08:28)
--- NOTE | 2023-05-04 16:09 | NUR ---
Nurse Progress Note Problem : Pt is on 5150 for DTS/GD from [facility]. Pt cut her left wrist because she was having CAH to harm herself. Pt hadnt been eating or sleeping well. No sutures needed for laceration/abrasion. Wound was measured and picture taken then redressed with telfa and gauze. 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 Pts mother took her in to be evaluated. Pt has a history of self-harm and does not want to . Denies SI on admission. Interventions : Maintained a safe and supportive environment, ensured contract for safety, provided clear and simple instructions, provided active listening and positive encouragement, encouraged pt. to perform ADLs, and maintained Q 15min safety checks. Response: Patient was found in community socializing with other patients. Patient appear to be mentally distracted not hearing nurse when called and looking confused when realizing nurse was calling them. When nurse was trying to give patient her medications patient stated she was losing her legs and fell onto her butt. Patient was assisted back up and told the nurse she forgives them for wishing her to fall. Patient then took medications and left. Patient later asked for pain medications for lower back. Patient was given prn Tylenol. After an hour patient was still complaining of 7/10 pain. A Lidocaine patch was then ordered and given to patient. Patient complains of a pinched nerve. Patient will have a lidocaine patch given daily now. Patient mother again came to visit her. Plan : Pt. requires interruption of current crisis, medication adjustments, and a safe and supportive environment.
[2023-05-04 19:00] VITALS: BP 129/91; PULSE 76; RESP 16; TEMP 97.4; O2SAT 96
[2023-05-04] MEDS: olanzapine 10mg tablet PO SCH (20:27)
[2023-05-04] MEDS: traZODone 50mg tablet PO SCH (20:27)
--- NOTE | 2023-05-05 04:27 | NUR ---
RN PROGRESS NOTE: LEGAL HOLD: 5250 for DTS/GD PROBLEM: Client reported command hallucinations telling her to kill herself. Client cut her wrists. RESPONSE: Client was cooperative. Flat affect and depressed mood. Took PM meds. Watched TV at [facility]. Denies side effects to medications. Client did not discuss CAH. PLAN: Client requires medications adjustment and ability to 'contract for safety' before discharge.
[2023-05-05 07:18] VITALS: RESP 12; O2SAT 95
[2023-05-05] MEDS: thiamine 100mg tablet PO SCH ×2 (07:53→20:17)
[2023-05-05] MEDS: multivitamins, therapeutics tablet PO SCH (07:53)
[2023-05-05] MEDS: sertraline 50mg tablet PO SCH (07:54)
[2023-05-05] MEDS: cyanocobalamin 500mcg tablet PO SCH (07:54)
[2023-05-05] MEDS: LIDOcaine 5% patch TP SCH (07:55)
[2023-05-05] MEDS: folic acid 1mg tablet PO SCH (07:55)
[2023-05-05 08:00] VITALS: BP 149/89; PULSE 81; RESP 12; TEMP 97.9; O2SAT 95
[2023-05-05] MEDS: lactulose 20gm/30ml cup PO SCH ×4 (08:00→21:00)
[2023-05-05] MEDS: lactose-reduced food (Ensure Enlive) - 237ml bottle PO SCH ×2 (08:00→20:00)
--- NOTE | 2023-05-05 09:27 | NUR ---
Reassessment: Pt continues on regular diet and PO intake appears to be improving. Per documentation pt refused all meals breakfast 05/02 to breakfast 05/03 though did consume 75% PO intake of dinner 05/02 and participated in snacks 05/02. Average PO intake up to 78% the following five meals. Noted pt to be receiving an Ensure Enlive BID though documented that it hasn't been available since 05/04. D/w dietary to send ONS per rx. Prior to ONS not being available pt documented to have refused it one time though with 100% PO intake x three. Estimated nutrient needs will be met if pt continues with good ONS acceptance and recent improvement in PO intake. LBM 05/02, moderate per PHOTOENGRAVING FINISHER documentation. Pt with routine Lactulose on med list though pt does refuse it at times per EMR. PRN MoM available, last given 05/01. No further nutrition intervention implemented at this time. Will continue to follow and make recommendations as appropriate. Recommendations: 1. Continue regular diet 2. Ensure Enlive BIDBD to assist meeting needs 3. Encourage PO intake 4. Routine Thiamine, Folic acid, Vitamin B12, and MVI d/t EtOH hx per MD 5. Routine bowel care 6. Weekly scaled weights Addendum: 05/05/23 at [address] Amended: Links added.
[2023-05-05] MEDS ORDERED: magnesium citrate 296ml oral solution PO ONE (15:25)
--- NOTE | 2023-05-05 16:25 | NUR ---
Nurse Progress Note Problem : Pt is on 5150 for DTS/GD from [facility]. Pt cut her left wrist because she was having CAH to harm herself. Pt hadnt been eating or sleeping well. No sutures needed for laceration/abrasion. Wound was measured and picture taken then redressed with telfa and gauze. Pt has a stressful job working for the [employer] in the [employer] service remotely. Pts mother took her in to be evaluated. Pt has a history of self-harm and does not want to . Denies SI on admission. Interventions : Maintained a safe and supportive environment, ensured contract for safety, provided clear and simple instructions, provided active listening and positive encouragement, encouraged pt. to perform ADLs, and maintained Q 15min safety checks. Response: Patient was cooperative with medications. Patient is on day 4 with out a bowel movement and was given milk of mag this morning. As of 1599 patient has still not had a bowel movement so Renee Dunn ordered mag citrate. Patient was instructed to notify nurse when shes had a bowel movement. Patients mother came to visit today and talk to about going home. Patient appeared excited but quickly changed to little affect once mother left. Patient isolates in room reading or in corner of community room making a puzzle. Plan : Pt. requires interruption of current crisis, medication adjustments, and a safe and supportive environment.
--- NOTE | 2023-05-05 17:56 | NUR ---
DEALERSHIP GENERAL MANAGER documentation: I have reviewed all interventions and assessments performed and documented by Sayra.
[2023-05-05 19:00] VITALS: BP 148/90; PULSE 89; RESP 16; RESP 18; TEMP 97.8; O2SAT 96; O2SAT 98
[2023-05-05] MEDS: olanzapine 10mg tablet PO SCH (20:17)
[2023-05-05] MEDS: traZODone 50mg tablet PO SCH (20:17)
--- NOTE | 2023-05-06 04:17 | NUR ---
RN PROGRESS NOTE: LEGAL HOLD: 5250 for DTS/GD PROBLEM: Client reported command hallucinations telling her to kill herself. Client cut her wrists. RESPONSE: Client given Mag Citrate for constipation on Day Shift. Reported she did not have a BM. Declined PM Lactulose. Cooperative and compliant with meds. Blunted affect. Mood is stable. PLAN: Client requires medications adjustment and ability to 'contract for safety' before discharge.
[2023-05-06 07:00] VITALS: RESP 16; O2SAT 96
[2023-05-06 08:00] VITALS: BP 121/73; PULSE 73; RESP 16; TEMP 97.9; O2SAT 96
[2023-05-06] MEDS: lactulose 20gm/30ml cup PO SCH ×3 (08:00→21:00)
[2023-05-06] MEDS: cyanocobalamin 500mcg tablet PO SCH (08:42)
[2023-05-06] MEDS: thiamine 100mg tablet PO SCH ×2 (08:43→20:57)
[2023-05-06] MEDS: multivitamins, therapeutics tablet PO SCH (08:43)
[2023-05-06] MEDS: sertraline 50mg tablet PO SCH (08:43)
[2023-05-06] MEDS: folic acid 1mg tablet PO SCH (08:43)
[2023-05-06] MEDS: LIDOcaine 5% patch TP SCH (08:44)
[2023-05-06] MEDS: lactose-reduced food (Ensure Enlive) - 237ml bottle PO SCH ×2 (08:47→20:57)
[2023-05-06] MEDS: mag hydrox/Alum hydrox/simeth 30ml oral suspension PO PRN (13:48)
--- NOTE | 2023-05-06 17:27 | NUR ---
Nurse Progress Note: Reva Problem: Pt is on 5150 for DTS/GD from [facility]. Pt cut her left wrist because she was having CAH to harm herself. Pt hadnt been eating or sleeping well. No sutures needed for laceration/abrasion. Wound was measured and picture taken then redressed with telfa and gauze. Pt has a stressful job working for the [employer] in the [employer] service remotely. Pts mother took her in to be evaluated. Pt has a history of self-harm and does not want to . Denies SI on admission. Interventions: Maintained a safe and supportive environment, medication administration/education/monitoring, ensured contract for safety, provided clear and simple instructions, provided active listening and positive encouragement, encouraged pt. to perform ADLs, and maintained Q 15min safety checks. Response: Patient received sleeping in her room at change of shift with no s/s of distress. She awoke and joined for breakfast in the group room with peers. Patient reported an episode of diarrhea this morning. Bowel sounds active x4, denies feelings of constipation. Pt is medication compliant. She endorsed feeling good this morning. Pt denies all MH symptom. She is noted to be quiet and reserved this shift. Pt observed sitting in the group room watching TV with peers periodically. She joined for all meals and snack times in the group room with peers. Plan: Pt. requires interruption of current crisis, medication adjustments, and a safe and supportive environment.
[2023-05-06 19:00] VITALS: RESP 14; O2SAT 97
[2023-05-06 20:00] VITALS: BP 123/77; PULSE 73; RESP 14; TEMP 97.9; O2SAT 97
[2023-05-06] MEDS: olanzapine 10mg tablet PO SCH (20:57)
[2023-05-06] MEDS: traZODone 50mg tablet PO SCH (20:57)
--- NOTE | 2023-05-07 00:16 | NUR ---
Nurse Progress Note: Reva Problem: Pt is on 5150 for DTS/GD from [facility]. Pt cut her left wrist because she was having CAH to harm herself. Pt hadnt been eating or sleeping well. No sutures needed for laceration/abrasion. Wound was measured and picture taken then redressed with telfa and gauze. Pt has a stressful job working for the [employer] in the [employer] service remotely. Pts mother took her in to be evaluated. Pt has a history of self-harm and does not want to . Denies SI on admission. Interventions: Maintained a safe and supportive environment, medication administration/education/monitoring, ensured contract for safety, provided clear and simple instructions, provided active listening and positive encouragement, encouraged pt. to perform ADLs, and maintained Q 15min safety checks. Response: Pt spent some time in group room watching TV also took a phone call in room. She has a very pleasant demeanor, smiles easily. She denies MH symptoms. She expects to be discharged tomorrow. She has her own home. Per pt she is isolated because she works from home and does not have friends or activities. She is hoping to get involved in some activities after discharge. Plan: Pt. requires interruption of current crisis, medication adjustments, and a safe and supportive environment.
[2023-05-07 07:00] VITALS: RESP 16; O2SAT 96
[2023-05-07] MEDS: lactulose 20gm/30ml cup PO SCH (08:00)
[2023-05-07] MEDS: folic acid 1mg tablet PO SCH (08:18)
[2023-05-07] MEDS: cyanocobalamin 500mcg tablet PO SCH (08:18)
[2023-05-07] MEDS: multivitamins, therapeutics tablet PO SCH (08:18)
[2023-05-07] MEDS: thiamine 100mg tablet PO SCH (08:18)
[2023-05-07] MEDS: sertraline 50mg tablet PO SCH (08:19)
[2023-05-07] MEDS: lactose-reduced food (Ensure Enlive) - 237ml bottle PO SCH (08:22)
[2023-05-07] MEDS: LIDOcaine 5% patch TP SCH (09:21)
[2023-05-07] MEDS: acetaminophen 325mg tablet PO PRN (09:44)
[2023-05-07] MEDS ORDERED: LIDO700A47 TP (11:50)
[2023-05-07] MEDS ORDERED: MULT-25 PO (11:50)
[2023-05-07] MEDS ORDERED: TRAZ-251 PO (11:50)
[2023-05-07] MEDS ORDERED: SERT-433 PO (11:50)
[2023-05-07] MEDS ORDERED: OLAN10TA73 PO (11:50)
--- NOTE | 2023-05-07 14:14 | NUR ---
Discharge Note: Pt. signed all paperwork, copies placed in chart. All personal belongings were accounted for and taken. F/U appts reviewed with pt. Esthela Noriega NP for SundayMay 14 at 12 PM, additionally an appointment has been made with Joanne for therapy on SundayMay 07 at 6 PM. Pt. ambulated off unit at 1345 without issue.
== END 2023-05-07 13:45 | disposition home or self-care (01) | DRG 885 ==
LOC: ADULT MH 16:40
PROVIDERS: ADMIT Psychiatry & Neurology Psychiatry; ATTEND Psychiatry & Neurology Psychiatry
DX: F20.9 Schizophrenia, unspecified (principal); R45.851 Suicidal ideations; Z60.2 Problems related to living alone; K59.00 Constipation, unspecified; E87.6 Hypokalemia; J45.909 Unspecified asthma, uncomplicated; F10.20 Alcohol dependence, uncomplicated; F32.A Depression, unspecified; Z81.1 Family history of alcohol abuse and dependence
CPT/HCPCS: 36415; 80053; 80061; 83036; 84132; 85025; 87081; J1200; J2060; J3490